=== PATIENT | male | born 1990 | race African-American/Black ===

== ENCOUNTER 2016-09-05 08:47 | Emergency (ER) | payer OTHER ==
[~2016-09-05] VITALS: Ht 180.3 cm; Wt 99.8 kg
--- NOTE | 2016-09-05 09:00 | ED GENERAL ADULT ---
History of Present Illness General Chief Complaint: Upper Respiratory Sx/Fever Stated Complaint: COUGH,FEVER,CHILLS Source: patient Exam Limitations: no limitations Vital Signs & Intake/Output Vital Signs & Intake/Output Vital Signs Date Time Temp Pulse Resp B/P Pulse O2 O2 Flow FiO2 Ox Delivery Rate 09/05 1000 98.0 88 20 150/80 98 Room Air 09/05 0851 97.5 100 18 167/75 98 Room Air Allergies Coded Allergies: No Known Allergies (09/05/16) Reconcile Medications Ibuprofen (Motrin Ib) 200 MG TABLET 2 TAB PO Q8 PRN PAIN/FEVER Oseltamivir Phosphate (Tamiflu) 75 MG CAPSULE 1 CAP PO BID PRN FLU Triage Note: 26 Y/O MALE C/O BODY ACHES, FEVERS AND COUGH SINCE LAST NIGHT. FLU SWAB SENT. AFEBRILE MASK IN PLACE Triage Nurses Notes Reviewed? yes Onset: Abrupt Duration: day(s): Timing: recent history HPI: 09/05/16 9:49 AM 26-year-old male presents to the emergency department complaining of a sudden onset of chills, runny nose, sneezing, myalgia, nonproductive cough. The onset of the symptoms were abrupt, the duration has been 24 hours, the severity is significant; as his symptoms required him to come to the emergency department for care. He has a past medical history of bronchitis. Past surgical history is noncontributory. He has no known drug allergies. He does smoke. Past History Travel History Traveled to [place] past 21 day No Medical History Any Pertinent Medical History? see below for history Neurological: NONE EENT: NONE Cardiovascular: NONE Respiratory: NONE Gastrointestinal: NONE Hepatic: NONE Renal: NONE Musculoskeletal: NONE Psychiatric: NONE Endocrine: NONE Blood Disorders: NONE Cancer(s): NONE INTRAVENOUS THERAPY NURSE/Reproductive: NONE Surgical History Surgical History: non-contributory Psychosocial History What is your primary language Swedish Tobacco Use: Never used Family History Hx Contributory? No Review of Systems Review of Systems Constitutional: Reports: chills, fever, malaise. EENTM: Reports: nasal pain. Respiratory: Reports: cough. Denies: sputum production. Cardiovascular: Denies: chest pain. GI: Denies: abdominal pain. Genitourinary: Reports: no symptoms. Musculoskeletal: Reports: muscle pain. Skin: Denies: rash. Neurological/Psychological: Reports: no symptoms. Hematologic/Endocrine: Reports: no symptoms. Immunologic/Allergic: Reports: no symptoms. Physical Exam Physical Exam General Appearance: well developed/nourished, alert, awake, anxious, mild distress Head: atraumatic, normal appearance Eyes: Bilateral: normal appearance, PERRL. Ears, Nose, Throat: normal pharynx, nasal congestion Neck: normal inspection, supple, full range of motion Respiratory: normal breath sounds, chest non-tender, no respiratory distress Cardiovascular: regular rate/rhythm Peripheral Pulses: 4+ radial (R), 4+ radial (L) Gastrointestinal: soft, non-tender Back: normal range of motion Extremities: no edema Neurologic/Psych: no motor/sensory deficits, awake, alert, oriented x 3 Skin: intact, normal color, warm/dry Core Measures ACS in differential dx? No CVA/TIA Diagnosis: No Severe Sepsis Present: No Septic Shock Present: No Progress Differential Diagnoses I considered the following diagnoses in my evaluation of the patient: [Viral syndrome, influenza, bronchitis, pneumonia] Plan of Care: Orders Procedure Date/time Status RAPID VIRAL INFLUENZA A 09/05 0851 Complete Microbiology 09/05 0856 NASOPHARYN: Influenza Virus A & B Rapid Smear - COMP Initial ED EKG: none Departure Departure Disposition: HOME OR SELF CARE Condition: Stable Clinical Impression Primary Impression: Viral syndrome Departure Forms: Customer Survey General Discharge Information Prescriptions: Current Visit Scripts Oseltamivir Phosphate (Tamiflu) 1 CAP PO BID PRN FLU #10 CAP Ibuprofen (Motrin Ib) 2 TAB PO Q8 PRN PAIN/FEVER #20 Comments The patient's lungs are clear. He admits to cough productive of whitish sputum. He has rhinorrhea. Rapid flu was negative, I'm still suspicious for influenza. He was treated with Tamiflu. Lots of fluids. He will follow-up with his doctor this week. Return to the emergency department if worse. Critical Care Note Critical Care Note Critical Care Time: non-applicable
[2016-09-05] MEDS ORDERED: MOTRIN IB200 M1 PO (09:55)
[2016-09-05] MEDS ORDERED: TAMIFLU75 M1 PO (09:55)
[2016-09-05 10:00] VITALS: BP 150/80
== END 2016-09-05 10:00 ==
LOC: ERH → EDSEX 08:47 → ERH 09:05
DX: B34.9 Viral infection, unspecified (principal)
CPT/HCPCS: 87804; 87804-59